=== PATIENT | male | born 1975 | race Caucasian/White ===

== ENCOUNTER 2019-12-28 18:09 | Outpatient (CLI) | payer OTHER, SELFPAY ==
--- NOTE | ~2019-12-28 | XR_ITS ---
XR hip RT min 2V DATE: 12/28/2019 18:23 INDICATION: Right hip pain for 4 to 5 months TECHNIQUE: AP and lateral views of right hip COMPARISON: None FINDINGS: No fracture or dislocation, avascular necrosis or bone destruction. Right hip joint space i s well preserved. The pubic symphysis and right sacroiliac joint are intact. IMPRESSION: Negative right hip Reviewed, dictated and finalized at location A. IMPRESSION: Negative right hip
== END 2019-12-28 18:10 | disposition home or self-care (01) ==
LOC: CHSIMG 18:12
PROVIDERS: PCP Internal Medicine; Visit Provider Internal Medicine
DX: M25.551 Pain in right hip (principal)
CPT/HCPCS: 73502

== ENCOUNTER → 2020-02-07 15:06 | Outpatient (CLI) | payer OTHER, SELFPAY ==
--- NOTE | ~2020-02-07 | MR_ITS ---
EXAMINATION: MR hip RT wo con DATE: 02/07/2020 16:13 INDICATION: Right hip pain TECHNIQUE: Magnetic resonance imaging (MRI) of the right hip was performed without intravenous contr ast. Sequences included full-field axial PD-weighted FS FSE and T1-weighted FSE, coronal of the pelvi s with PD-weighted FS FSE, small field of view of the right hip with axial PD-weighted FS FSE, sagit rosalino PD-weighted FS FSE and coronal PD weighted FS FSE. Additional radial T1-weighted FGR oriented ort hogonal to the acetabular rim were obtained for evaluation of the labrum. COMPARISON: Right hip radiographs dated 01/07/2020 FINDINGS: Bones/labrum/cartilage: Alignment is normal. No fracture, avascular necrosis or pathologic marrow replacing process. There i s bilateral mild anterosuperior decreased femoral head/neck offset. Minimal cystic change at the supe rolateral right femoral head neck junction. Mild right hip osteoarthritis with partial thickness cart ilage loss most prominent circumferentially about the periphery of the joint space. Mild degeneration at the posterior superior acetabular labrum where there is a small os acetabulum. No discrete linear labral tear. Lower lumbar disc height loss, mild at L4-L5 and moderate at L5-S1. Mild increased flui d signal underlying the L5-S1 endplates likely representing secondary fibrovascular endplate changes. Moderate facet osteoarthritis bilaterally at L4-L5 and L5-S1. Fluid: Symmetric physiologic amount of fluid within both hip joints. Soft tissues: Normal and symmetric muscle bulk and signal in the pelvis and visualized proximal thighs. The iliopso as, gluteal and proximal hamstring tendons are normal. Limited evaluation of visceral organs of the p joselyn is unremarkable. No pathologically enlarged pelvic/inguinal lymphadenopathy. IMPRESSION: 1. Mild right hip osteoarthritis with mild degeneration of the posterior superior acetabular labrum. 2. Moderate lower lumbar spondylosis. Reviewed, dictated and finalized at location . 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 Mild right hip osteoarthritis with mild degeneration of the posterior superi or acetabular labrum. 2. Moderate lower lumbar spondylosis.
== END ==
PROVIDERS: PCP Internal Medicine; Visit Provider Internal Medicine
DX: M16.11 Unilateral primary osteoarthritis, right hip (principal); M47.896 Other spondylosis, lumbar region
CPT/HCPCS: 73721

== ENCOUNTER → 2021-04-11 09:51 | Outpatient (CLI) | payer OTHER, SELFPAY ==
[2021-04-11 21:12] LABS: SARS-CoV-2 RNA PCR Positive
== END ==
PROVIDERS: PCP Internal Medicine; Visit Provider Internal Medicine
DX: U07.1 COVID-19 (principal)
CPT/HCPCS: C9803; U0003; U0005

== ENCOUNTER 2023-03-11 10:29 | Emergency (ER) | payer OTHER, SELFPAY ==
--- NOTE | ~2023-03-11 | CT_ITS ---
EXAMINATION: CT brain wo con INDICATION: Vision changes COMPARISON: None TECHNIQUE: Standard unenhanced head CT. The dose-length product (DLP) was 605.33 mGy-cm. The mA was a djusted according to patient size. Iterative reconstruction technique was employed. FINDINGS: No intracranial hemorrhage, acute infarction, or abnormal mass lesion. The ventricles are n ormal. No abnormal mass effect or midline shift. The flowers-white matter differentiation is normal. The basal cisterns are patent. The orbits are normal. The paranasal sinuses, mastoids and calvarium are normal. IMPRESSION: 1. No acute intracranial abnormality. 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
[2023-03-11 10:49] VITALS: BP 148/88; PULSE 85; RESP 16; TEMP 37; O2SAT 98
--- NOTE | 2023-03-11 11:15 | PC.NURSE ---
Patient states neck pain began 02/19. Patient has seen PCP, and is scheduled for an MRI tomorrow, but began having long distance vision blurriness Thursday and called PCP yesterday who advised patient to come to the ED today. Patient has been taking steroids and Flexeril with some relief, but states he ran out of the steroid yesterday and is having increasing pain today. Patient has been getting PT as well.
[2023-03-11] MEDS: CYCLOBENZAPRINE HCL 10 MG TABLET PO (12:43)
[2023-03-11] MEDS: ACETAMINOPHEN 500 MG TABLET 1000 MG PO (12:43)
--- NOTE | 2023-03-11 12:46 | ED.NECK ---
HPI - Neck Pain/Injury General Chief Complaint: Neck Pain/Injury Stated Complaint: neck pain Time Seen by Provider: 03/11/23 12:02 History of Present Illness HPI Narrative: 47-year-old male presenting to the emergency department for evaluation of right-sided neck and arm pain that is been ongoing for the last few weeks in addition to change in his long distance vision. Patient states he has been having arm and neck pain for the last few weeks and is scheduled for a cervical spine MRI tomorrow. Patient states Thursday when he was walking he noticed that he had a blurriness of his long distance vision but denies any change in shortness in vision. Patient does were glasses. Patient states that the long distance vision has since improved. Patient did have follow-up with primary care physician referred to the emergency department. Patient denies any associated numbness or weakness. Patient did recently complete a Medrol Dosepak and states that his right-sided neck and shoulder pain is worsened since completing the Medrol Dosepak. Related Data Allergies Allergy/AdvReac Type Severity Reaction Status Date / Time NSAIDS (Non-Steroidal AdvReac Hives Verified 03/11/23 12:07 Anti-Inflamma Review of Systems Review of Systems: All systems reviewed & are unremarkable except as noted in HPI and below Exam Narrative: APPEARANCE: Well appearing, no pain, no distress, well-nourished. HEAD: normocephalic, atraumatic. EYES: PERRLA/EOMI, conjunctivae clear. NOSE: Normal no drainage EARS:TMS clear with good light reflex. THROAT: Pharynx clear, no exudate. NECK: Supple. No adenopathy, no masses. RESPIRATORY: Airway patent, respirations nonlabored. Clear to auscultation bilaterally, no rales, rhonchi, wheezing. CARDIOVASCULAR: Regular rate and rhythm without murmurs rubs or gallops. ABDOMINAL: Soft, nontender, nondistended, normal bowel sounds MUSCULOSKELETAL: Moves all extremities. Strength/ROM intact, No edema, No calf tenderness. NEURO: Alert. Cranial nerves II through XII intact. Grossly intact SKIN: Warm, dry. Normal Color Course Course Emergency Course: 47-year-old male presenting to the emergency department for evaluation our right shoulder right-sided neck pain along with blurred long distance vision. Patient has a normal neuro exam and is grossly intact. CT shows no acute intracranial abnormality. Patient reports that his symptoms are improving since the initial occurrence. Patient denies any other focal numbness or weakness. Patient was encouraged close follow-up with his primary care physician. Patient does have an MRI scheduled for tomorrow. Patient was restarted on his Medrol Dosepak. Vital Signs Vital signs: Vital Signs Temperature 98.6 F 03/11/23 10:49 Pulse Rate 85 03/11/23 10:49 Respiratory Rate 16 03/11/23 10:49 Blood Pressure 148/88 H 03/11/23 10:49 Pulse Oximetry 98 03/11/23 10:49 Temperature 98.3 F 03/11/23 14:02 Pulse Rate 74 03/11/23 14:02 Respiratory Rate 16 03/11/23 14:02 Blood Pressure 127/83 03/11/23 14:02 Pulse Oximetry 97 03/11/23 14:02 MDM - Neck Pain/Injury Differential Diagnosis Differential diagnosis: Likely closed subluxation of cervical spine, cervical radiculopathy and strain of neck muscle Imaging Data Radiologist's impression: Impressions Head CT 03/11/23 12:54 IMPRESSION: 1. No acute intracranial abnormality. Discharge Plan Discharge Clinical Impression: Neck pain, Blurred vision Patient Disposition: Home, Self-Care Condition: Stable Instructions: Antibiotic Form Additional Instructions: Home medications for pain control as directed. Flexeril for muscle spasm. Medrol Dosepak as directed until completed. Have your outpatient MRI as scheduled. Have close follow-up with your primary care physician. If you have any worsening symptoms then please call or return to the emergency department. Prescriptions: N
[2023-03-11 14:02] VITALS: BP 127/83; PULSE 74; RESP 16; TEMP 36.8; O2SAT 97
== END 2023-03-11 14:05 | disposition home or self-care (01) ==
PROVIDERS: Emergency Provider Emergency Medicine; PCP Internal Medicine
DX: M54.2 Cervicalgia (principal); H53.8 Other visual disturbances
CPT/HCPCS: 70450; 99284; A9270

== ENCOUNTER → 2023-03-12 08:16 | Outpatient (CLI) | payer OTHER, SELFPAY ==
--- NOTE | ~2023-03-12 | MR_ITS ---
MRI of the cervical spine Clinical History: Radiculopathy Technique: Axial T2-weighted and gradient images, and sagittal T1-weighted, T2-weighted, and STIR pedro ges were acquired. Findings: There is no fracture or subluxation of the cervical spine. Vertebral bodies maintain normal height and alignment. No bone marrow signal abnormality seen. At C2-C3, there is no disc bulge or herniation. No spinal canal stenosis, cord compression, or left n eural foraminal narrowing. Minimal right neural foraminal narrowing with minimal right facet joint hy pertrophy. At C3-C4, there is mild disc ossify complex, especially the left foraminal region, with mild left fac et arthropathy. There is probable mild left neural foraminal narrowing. Right neural foramen preserve d. No central canal stenosis or cord compression. At C4-C5, there is no disc bulge or herniation. No spinal canal stenosis, cord compression, or neural foraminal narrowing. At C5-C6, there is minimal disc osteophyte complex. No spinal canal stenosis, cord compression, or ne ural foraminal narrowing. At C6-C7, there is probable right paracentral to right foraminal disc osteophyte complex, with minima l right neural foraminal narrowing. Left neural foramen preserved. No central canal stenosis or cord compression. No abnormal signal seen in the spinal cord. Paravertebral soft tissues are unremarkable. Impression: Mild degenerative spondylosis, as above. Reviewed, dictated and finalized at [facility]. 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
== END ==
PROVIDERS: PCP Internal Medicine; Visit Provider Internal Medicine
DX: M47.22 Other spondylosis with radiculopathy, cervical region (principal)
CPT/HCPCS: 72141

== ENCOUNTER 2023-10-27 16:47 | Outpatient (CLI) | payer OTHER, SELFPAY ==
[2023-10-27 17:18] LABS: Basophils Absolute Auto 0.02 K/mm3 (0.00-0.10); Basophils Percent Auto 0.3 % (0.0-1.0); Eosinophils Absolute Auto 0.14 K/mm3 (0.02-0.50); Eosinophils Percent Auto 1.9 % (1.0-6.0); Hematocrit 45.7 % (40.0-54.0); Hemoglobin 15.8 g/dL (14.0-18.0); Immature Granulocyte Absolute 0.03 K/mm3 (0.00-0.00); Immature Granulocyte Percent A 0.4 % (0.0-0.0); Lymphocytes Absolute Auto 2.08 K/mm3 (1.10-4.50); Mean Corpuscular HGB Conc 34.6 g/dL (32-36); Mean Corpuscular Hemoglobin 29.5 pg (27.0-31.0); Mean Corpuscular Volume 85.4 fL (78.0-102.0); Mean Platelet Volume 9.7 fl (8.7-11.0); Monocytes Percent Auto 6.7 % (2.0-11.0); Neutrophils Absolute Auto 4.65 K/mm3 (1.70-7.20); Neutrophils Percent Auto 62.7 % (50.0-70.0); Platelet Count Result 272 K/mm3 (150-420); Red Blood Count 5.35 M/mm3 (4.70-6.10); Red Cell Distribution Width 12.5 % (11.6-14.4); White Blood Count 7.4 K/mm3 (4.8-10.8)
[2023-10-27 18:17] LABS: Erythrocyte Sedimentation Rate 20 mm/hr (0-15)
[2023-10-27 19:35] LABS: Alanine Aminotransferase 50 U/L (16-63); Alkaline Phosphatase 61 U/L (46-116); Amylase 40 U/L (25-115); Anion Gap 13 mmol/L (4-12); Aspartate Amino Transferase 21 U/L (15-37); Bilirubin,Total 0.4 mg/dL (0.00-1.00); Blood Urea Nitrogen 12 mg/dL (7-18); CRP 1.9 mg/dL (0.0-0.9); Calcium 9.3 mg/dL (8.5-10.1); Carbon Dioxide 26 mmol/L (21-32); Chloride 102 mmol/L (98-108); Estimated Glomerular Filt Rate > 60; Free T3 2.76 pg/mL (2.18-3.98); Glucose 91 mg/dL (70-99); Lipase 35 U/L (16-77); Osmolality Calculated 291 mOsm/kg (285-295); Potassium 4.1 mmol/L (3.5-5.1); Sodium 141 mmol/L (136-145); Thyroid Stimulating Hormone 2.45 uIU/mL (0.36-3.74); Total Protein 7.6 g/dL (6.4-8.2)
[2023-10-30 15:19] LABS: Immunoglobulin A 410 mg/dL (47-310)
[2023-11-06 09:49] LABS: Reference Lab Test Name TRYPTASE
[2023-11-06 09:50] LABS: Reference Lab Test Result 4.3 mcg/L
== END 2023-10-27 16:48 | disposition home or self-care (01) ==
LOC: CHSLAB 16:50
PROVIDERS: PCP Internal Medicine; Visit Provider Internal Medicine
DX: R11.0 Nausea (principal); R19.7 Diarrhea, unspecified; L50.9 Urticaria, unspecified
CPT/HCPCS: 36415; 80053; 82150; 82784; 83516; 83520; 83690; 84439; 84443; 84481; 85025; 85652; 86038; 86039; 86140

== ENCOUNTER 2023-11-05 10:40 | Emergency (ER) | payer OTHER, SELFPAY ==
--- NOTE | ~2023-11-05 | XR_ITS ---
3 VIEWS LUMBAR SPINE Ordering provider: Alexa Shelton NP History: . right sciatica radiating to knee for 2 months no injury . Comparison: None. FINDINGS: VERTEBRAL BODIES:Mild dextroscoliosis. No visible fracture or subluxation. Degenerative changes of t he spine. DISK SPACES: Narrowing of the disc L5-S1. Facet joint disease at the level of L5-S1. SOFT TISSUES: Normal. IMPRESSION: No acute osseous abnormality lumbar spine. Degenerative disc disease at the level of L5-S1. Reviewed, dictated and finalized at location A.
[2023-11-05 10:52] VITALS: BP 148/90; PULSE 85; RESP 16; TEMP 36.6; O2SAT 96
--- NOTE | 2023-11-05 10:56 | ED.GENADULT ---
HPI - General Adult General Chief complaint: Extremity Injury, Lower Stated complaint: R HIP INJURY Time Seen by Provider: 11/05/23 10:56 Source: patient, RN notes reviewed and old records reviewed Mode of arrival: ambulatory Limitations: no limitations History of Present Illness HPI narrative: 48 year old male who presents to [facility] care with complaints of 2 month intermittent duration of right posterior buttock pain which will radiate down to his posterior leg to knee. Patient reports that he had a massage on Thursday and he has had increased pain since after receiving massage. Patient reports that he has taken some Tylenol and also some Flexeril for his discomfort with minimal relief. Patient reports pain 5-6/10 with increased pain when he sits, pacing in room due to pain. patient reports no tingling or numbness to his lower extremities. Patient reports no difficulty passing urine or stools or any saddle paraesthesia. MD complaint: right buttock radiates to right posterior leg to knee Onset (ago): day(s) (increased symptoms since Thursday) Location: buttocks (right down posterior leg to knee) Radiation: extremity (posterior right leg) Severity scale (1-10): 6 Quality: dull and constant Treatments prior to arrival: other (Tylenol and flexeril) Related Data Allergies Allergy/AdvReac Type Severity Reaction Status Date / Time NSAIDS (Non-Steroidal AdvReac Hives Verified 11/05/23 10:49 Anti-Inflamma Review of Systems Review of Systems: CONSTITUTIONAL: Denies fever, chills, or sweats. EYES: Denies visual changes, redness, or discharge. ENT: Denies rhinorrhea, congestion, sore throat, or otalgia. CARDIOVASCULAR: Denies chest pain, palpitations, or edema. RESPIRATORY: Denies cough or dyspnea. GASTROINTESTINAL: Denies abdominal pain, nausea, vomiting, or diarrhea. GENITOURINARY: Denies dysuria or hematuria. SKIN: Denies rash or itching. MUSCULOSKELETAL: positive for pain to right buttocks going into right leg to knee posteriorly, or myalgia. NEUROLOGIC: Denies headache, numbness, or weakness. PSYCHIATRIC: Denies anxiety or depression. All systems reviewed & are unremarkable except as noted in HPI and below PMFSH Past Medical History Medical History (Updated 11/05/23 @ 12:06 by Alexa Shelton NP) Arthritis Right hip pain Social History Social History (Updated 11/05/23 @ 12:03 by Alexa Shelton NP) Smoking status: Never smoker Alcohol intake: current Alcohol use details: social Substance use type: does not use Living arrangements: with family Gender identity (if verbalized by the patient): Male Comments At time of signature, agree with nursing past medical, surgical, social and family history. There is no relevant family history pertinent to the presenting complaint Exam Narrative: GENERAL: Well-appearing, well-nourished, and in some acute distress. HEAD: Normocephalic, atraumatic. EYES: PERRLA and EOMI. ENT: Nares clear, no rhinorrhea or epistaxis. Mucous membranes moist. NECK: Supple.no lymphadenopathy CHEST: Clear to auscultation. No respiratory distress.SAO2 96% on room air HEART: Regular rate and rhythm. No murmur heard. Normal peripheral pulses. ABDOMEN: Soft, nontender, nondistended, normal active bowel sounds. EXTREMITIES: Normal range of motion. No edema.positive for pain in right buttock with radiation of pain to posterior area of right leg to knee no tingling or numbness , no saddle paraesthesia, increased house with sitting SKIN: Warm, dry, no rash. NEURO: No focal deficits. Alert and oriented x3. Course Course Emergency Course: Patient is aware of diagnosis, understands and agrees to treatment plan.? Anticipatory guidance given.? Patient agrees to follow-up as directed and is aware of reasons to seek care at the emergency department. Portions of this record may have been created with voice recognition software Level of Care: Express Care Visit Vital Signs Vital signs: Vital
== END 2023-11-05 11:41 | disposition home or self-care (01) ==
PROVIDERS: Emergency Provider Registered Nurse; PCP Internal Medicine
DX: M51.37 Other intervertebral disc degeneration, lumbosacral region (principal); M54.41 Lumbago with sciatica, right side; M19.90 Unspecified osteoarthritis, unspecified site
CPT/HCPCS: 72110; 99213; G0463

== ENCOUNTER 2023-11-17 14:29 | Outpatient (CLI) | payer OTHER, SELFPAY ==
--- NOTE | ~2023-11-17 | MR_ITS ---
EXAMINATION: MR hip RT wo con DATE: 11/17/2023 15:41 INDICATION: Right hip pain. TECHNIQUE: Magnetic resonance imaging (MRI) of the right hip was performed without intravenous contra st. COMPARISON: Right hip radiographs 12/28/19 FINDINGS: Bones/cartilage: Bone alignment is normal. No fracture. There is severe spondylosis at L5-S1. There is decreased femor al head/neck offset bilaterally, which may seen with femoral acetabular impingement. The hips demonst rate small osteophytes. Small [id number] images of right hip demonstrate shallow partial-thickness cartilage loss. Labrum: There is a tear of the right acetabular labrum. Fluid: There is no hip joint effusion. There is mild right trochanteric bursitis. Soft tissues: The hamstring tendon origins are normal. The iliopsoas tendons are normal. The gluteus minimus and gl uteus medius tendons are normal. There is a small partial tear in left gluteus figueroa muscle with ed dulce-like signal intensity. This finding could be an injection site. IMPRESSION: 1. Mild osteoarthritis of the hips. 2. Right acetabular labral tear. Reviewed, dictated and finalized at location A.
== END 2023-11-17 14:30 ==
PROVIDERS: PCP Internal Medicine; Visit Provider Internal Medicine
DX: M16.0 Bilateral primary osteoarthritis of hip (principal); S73.191A Other sprain of right hip, initial encounter; X58.XXXA Exposure to other specified factors, initial encounter
CPT/HCPCS: 73721

== ENCOUNTER 2023-11-18 08:09 | Outpatient (CLI) | payer OTHER, SELFPAY ==
--- NOTE | ~2023-11-18 | US_ITS ---
Limited Abdominal Sonogram: Real-time sonographic imaging of the right upper quadrant was performed. Clinical History: Right upper quadrant pain Findings: The liver appears normal with no evidence of mass lesion or bile duct dilatation. Main por rosalino vein demonstrates normal direction of flow. The gallbladder is well distended, and appears normal with no evidence of gallstone or wall thickening. The common bile duct measures 4 mm. The visualize d pancreas, aorta, and IVC are unremarkable. Impression: No significant abnormality seen. Reviewed, dictated and finalized at location M. Impression: No significant abnormality seen.
== END 2023-11-18 08:10 ==
LOC: GOSHIMG 08:10
PROVIDERS: PCP Internal Medicine; Visit Provider Internal Medicine
DX: R10.11 Right upper quadrant pain (principal)
CPT/HCPCS: 76705